=== PATIENT | female | born 1960 | race Caucasian/White ===

== ENCOUNTER 2017-05-25 23:29 | Inpatient (IN) | payer BC, MEDICAID ==
[~2017-05-25] VITALS: Ht 154.9 cm; Wt 78.0 kg
--- NOTE | 2017-05-25 23:39 | ERA ---
ER Documentation Chief Complaint Date/Time DATE: 05/25/17 TIME: 23:39 Chief Complaint palpitations HPI The patient is a 56-year-old female, presenting to the ER because of palpitation for the last 4 hours. She denies similar symptoms previously, chest pain, dyspnea. She denies fever, chills, syncope, near syncope, neck pain , abdominal pain, dyspnea, diarrhea. She does not smoke does not drink Past medical history: Hypertension Past surgical history: Mitral valve replacement ROS All systems reviewed and are negative except as per history of present illness. Medications Home Meds Reported Medications Potassium Citrate* (Potassium Citrate* ER) 10 Meq Tablet.sa, 10 MEQ PO BID, TAB.SA 05/26/17 Furosemide* (Furosemide*) 40 Mg Tablet, 40 MG PO DAILY, TAB 05/26/17 Aspirin* (Aspirin* EC) 81 Mg Tablet.dr, 81 MG PO DAILY, TAB 05/26/17 Hydrocodone/Acetaminophen ([place] 5-325 Tablet) 1 Each Tablet, 1 EACH PO PRN, TAB 05/26/17 Lisinopril* (Lisinopril*) 2.5 Mg Tablet, 2.5 MG PO DAILY, #30 TAB 05/26/17 Carvedilol* (Carvedilol*) 3.125 Mg Tablet, 3.125 MG PO BID, #60 TAB 05/26/17 Allergies Allergies: Coded Allergies: No Known Allergy (Unverified , 05/26/17) Physical Exam Vitals Vital Signs Date Time Temp Pulse Resp B/P Pulse Ox O2 Delivery O2 Flow Rate FiO2 05/26/17 01:30 98.2 70 19 121/76 100 Room Air 05/26/17 01:12 98.2 140 19 111/96 100 Room Air 05/25/17 23:44 98.2 163 19 130/111 100 Room Air 05/25/17 23:33 161 19 126/110 100 Physical Exam Const: No acute distress. Head: Atraumatic. Eyes: Normal Conjunctiva. ENT: Normal External Ears, Nose and Mouth. Neck: Full range of motion. No meningismus. Resp: Clear to auscultation bilaterally. Cardio: Irregularly irregular tachycardic Abd: Soft, non distended, normal bowel sounds, non tender. Skin: No petechiae or rashes. Back: No midline or flank tenderness. Ext: No cyanosis, or edema. Neur: Awake and alert. No focal deficit Psych: Normal Mood and Affect. Result Diagram: 05/25/17 2340 05/25/17 2340 Results 24 hrs Laboratory Tests Test 05/25/17 23:40 White Blood Count 9.610^3/ul Red Blood Count 4.7410^6/ul Hemoglobin 14.3g/dl Hematocrit 43.5% Mean Corpuscular Volume 91.8fl Mean Corpuscular Hemoglobin 30.2pg Mean Corpuscular Hemoglobin Concent 32.9g/dl Red Cell Distribution Width 12.0% Platelet Count 96489^3/UL Mean Platelet Volume 10.6fl Neutrophils % 60.4% Lymphocytes % 29.8% Monocytes % 7.2% Eosinophils % 1.9% Basophils % 0.4% Nucleated Red Blood Cells % 0.0/100WBC Neutrophils # 5.810^3/ul Lymphocytes # 2.910^3/ul Monocytes # 0.710^3/ul Eosinophils # 0.210^3/ul Basophils # 0.010^3/ul Nucleated Red Blood Cells # 0.010^3/ul Prothrombin Time 11.3Sec Prothrombin Time Ratio 0.9 INR International Normalized Ratio 0.82 Activated Partial Thromboplast Time 27.5Sec Sodium Level 147mmol/L Potassium Level 3.3mmol/L Chloride Level 101mmol/L Carbon Dioxide Level 28mmol/L Anion Gap 21 Blood Urea Nitrogen 17mg/dl Creatinine 0.86mg/dl Glucose Level 128mg/dl Calcium Level 9.5mg/dl Magnesium Level 2.1mg/dl Troponin I 0.016ng/ml Thyroid Stimulating Hormone (TSH) 0.650MIU/L Current Medications Medications (Trade) Dose Ordered Sig/Claudio Route PRN Reason Start Time Stop Time Status Last Admin Dose Admin Diltiazem HCl (Cardizem Iv) 20 mg ONCE ONCE IV 05/26/17 00:00 05/26/17 00:15 DC 05/26/17 00:27 Diltiazem HCl 25 mg 25 mg STK-MED ONCE .ROUTE 05/25/17 23:47 05/25/17 23:48 DC Sodium Chloride (NS) 1,000 ml @ 1,000 mls/hr Q1H ONCE IV 05/26/17 00:00 05/26/17 00:59 DC 05/26/17 00:02 Enoxaparin Sodium (Lovenox) 80 mg ONCE SC 05/26/17 00:30 05/26/17 01:00 DC 05/26/17 00:27 Diltiazem HCl 10 mg 10 mg ONCE ONCE IV 05/26/17 01:30 05/26/17 01:31 Cancel Potassium Chloride (KCl 40 MEQ/250 ML NS) 250 ml @ 62.5 mls/hr ONCE ONCE IVPB 05/26/17 02:00 05/26/17 05:59 05/26/17 02:18 Procedures/MDM EK:43 pm Read by emergency physician Rate/Rhythm: Atrial fibrillation with rapid ventricular response at 150 beats/min QRS, ST, T-waves: No ST elevation, no T inversion, PVC, inferior lateral ST and T abnormality Impression: Abnormal EKG EK:06 am Read by emergency physician Rate/Rhythm: Atrial fibrillation at 76 beats/min QRS, ST, T-waves: No ST elevation, no T inversion, nonspecific ST and T abnormality, prolonged QT Impression: Abnormal EKG [place] [id number] Radiology Main Line: [phone] DIAGNOSTIC IMAGING REPORT Patient: LI ELIZALDE : 1960 Age: 56 Sex: F MR #: [id number] DOS: 05/25/17 2339 Ordering MD: MANASA CALDERON MD Location: E/R Room/Bed: PROCEDURE: CHEST - 1 VIEW CLINICAL INDICATION: 56-year-old female with chest pain. TECHNIQUE: A single frontal AP upright portable view of the chest was performed. The images were reviewed on a PACS workstation. COMPARISON: None. FINDINGS: The patient has had a prior median sternotomy. The cardiomediastinal silhouette is enlarged. There is a valvular prosthesis. There is a left atrial appendage closure device. There is mild pulmonary vascular congestion. There is a shallow inspiration. There is mild bibasilar subsegmental atelectasis. There is no evidence for focal consolidation. There is no evidence for pneumothorax. IMPRESSION: 1. Status post median sternotomy. 2. Cardiomegaly with valvular prosthesis and left atrial appendage closure device. 3. Pulmonary vascular congestion. 4. Shallow inspiration with mild bibasilar subsegmental atelectasis. .Jesus Tapia MD, Date Time Electronically viewed and signed by .Jesus Tapia MD, on 05/26/2017 01:38 .M/ CC: MANASA CALDERON MD MEDICAL MAKING DECISION: The patient is a 56-year-old female, presenting with acute new onset atrial fibrillation, acute hypokalemia. He was treated with 1 L normal saline, Cardizem 10 mg IV and Lovenox 1 mg/kg subcutaneously for acute new onset atrial fibrillation and potassium chloride 40 mEq IV for acute hypokalemia with good response. Her heart rate has been under control well with the aforementioned treatment The differential diagnoses considered include but are not limited to acute coronary syndrome, acute myocardial infarction, pericarditis, pulmonary embolism , aortic dissection, pneumonia, pleural effusion, pneumothorax, GERD, chest wall pain, thyroid disease Critical Care: Time: 35 minutes excluding all billable procedures. Treatments/Evaluations: Close monitoring and treatment of unstable vital signs, cardiorespiratory, and neurologic status, while maintaining tight balance of fluid, respiratory, and cardiac interventions. Departure Diagnosis: Primary Impression: New onset atrial fibrillation Additional Impression: Hypokalemia Condition: Good Comments I discussed the findings with the patient. I discussed the patient with her physician Dr. Patrick Mckeon who was made aware of the lab, the treatment, the patient condition. The patient is admitted to [facility] at 1:55 am MANASA CALDERON MD May 25, 2017 23:39
[2017-05-25] MEDS ORDERED: DILTIAZEM 25 MG INJ ONE (23:47)
[2017-05-26] MEDS ORDERED: SOD CHLORIDE 0.9% 1,000 ML IV ONE
[2017-05-26] MEDS ORDERED: FURO40TA4 PO (00:10)
[2017-05-26] MEDS ORDERED: CARV3.1260 PO (00:10)
[2017-05-26] MEDS ORDERED: HYDR-906 PO (00:10)
[2017-05-26] MEDS ORDERED: ASPI-664 PO (00:10)
[2017-05-26] MEDS ORDERED: LISI2.5T59 PO (00:10)
[2017-05-26] MEDS ORDERED: POTA10TA18 PO (00:10)
[2017-05-26] MEDS ORDERED: ENOXAPARIN 80 MG/0.8 ML SYG SC SCH (00:30)
[2017-05-26 01:09] LABS: BASOPHILS % 0.4 % (0.0-2.0); EOSINOPHILS # 0.2 10^3/ul (0.0-0.5); EOSINOPHILS % 1.9 % (0.0-7.0); HEMATOCRIT 43.5 % (37.0-47.0); HEMOGLOBIN 14.3 g/dl (12.0-16.0); LYMPHOCYTES # 2.9 10^3/ul (0.8-2.9); LYMPHOCYTES % 29.8 % (15.0-51.0); MEAN CORPUSCULAR HEMOGLOBIN 30.2 pg (29.0-33.0); MEAN CORPUSCULAR HGB CONC 32.9 g/dl (32.0-37.0); MEAN CORPUSCULAR VOLUME 91.8 fl (82.0-101.0); MEAN PLATELET VOLUME 10.6 fl (7.4-10.4); MONOCYTE # 0.7 10^3/ul (0.3-0.9); MONOCYTES % 7.2 % (0.0-11.0); NEUTROPHIL # 5.8 10^3/ul (1.6-7.5); NEUTROPHILS % 60.4 % (39.0-77.0); PLATELET COUNT 252 10^3/UL (140-415); RED BLOOD COUNT 4.74 10^6/ul (4.20-5.40); WHITE BLOOD COUNT 9.6 10^3/ul (4.8-10.8)
[2017-05-26 01:26] LABS: INR 0.82; PARTIAL THROMBOPLASTIN TIME 27.5 Sec (25.0-35.0); PROTIME 11.3 Sec (12.2-14.2); PT RATIO 0.9
[2017-05-26 01:30] LABS: CALCIUM 9.5 mg/dl (8.4-10.2); CREATININE 0.86 mg/dl (0.44-1.00); MAGNESIUM 2.1 mg/dl (1.7-2.5); POTASSIUM 3.3 mmol/L (3.5-5.1)
[2017-05-26] MEDS ORDERED: DILTIAZEM 25 MG INJ IV ONE ×2 (01:30)
--- NOTE | 2017-05-26 01:39 | RADRPT ---
PROCEDURE: CHEST - 1 VIEW CLINICAL INDICATION: 56-year-old female with chest pain. TECHNIQUE: A single frontal AP upright portable view of the chest was performed. The images were reviewed on a PACS workstation. COMPARISON: None. FINDINGS: The patient has had a prior median sternotomy. The cardiomediastinal silhouette is enlarged. There is a valvular prosthesis. There is a left atrial appendage closure device. There is mild pulmonary vascular congestion. There is a shallow inspiration. There is mild bibasilar subsegmental atelect asis. There is no evidence for focal consolidation. There is no evidence for pneumothorax. IMPRESSION: 1. Status post median sternotomy. 2. Cardiomegaly with valvular prosthesis and left atrial appendage closure device. 3. Pulmonary vascular congestion. 4. Shallow inspiration with mild bibasilar subsegmental atelectasis. .Jesus Tapia MD, Date Time Electronically viewed and signed by .Jesus Tapia MD, on 05/26/2017 01:38 .M/
[2017-05-26 01:40] LABS: TROPONIN-I 0.016 ng/ml (0.00-0.12)
[2017-05-26 01:58] LABS: THYROID STIMULATING HORMONE 0.65 MIU/L (0.465-4.680)
[2017-05-26] MEDS ORDERED: POTASSIUM CHLORIDE 250 ML IVPB ONE (02:00)
[2017-05-26] MEDS ORDERED: SOD CHLORIDE 0.9% 500 ML IV ONE (03:30)
[2017-05-26] MEDS ORDERED: POTASSIUM CHLORIDE (SR) 10 MEQ TAB PO ONE (06:00)
[2017-05-26 06:59] VITALS: TEMP 98
[2017-05-26 07:52] VITALS: BP 136/72; PULSE 68; RESP 20; Ht 154.9 cm; Wt 78.0 kg
[2017-05-26] MEDS ORDERED: HYDROCODONE/APAP (5/325) TAB PO PRN ×2 (08:00→09:00)
[2017-05-26] MEDS ORDERED: ASPIRIN (EC) 81 MG TAB PO SCH (09:00)
[2017-05-26] MEDS ORDERED: LISINOPRIL 5 MG TAB PO SCH (09:00)
[2017-05-26] MEDS ORDERED: POTASSIUM CITRATE (SR) 5 MEQ TAB PO SCH (09:00)
[2017-05-26] MEDS ORDERED: FUROSEMIDE 40 MG TAB PO SCH (09:00)
--- NOTE | 2017-05-26 14:48 | DS ---
Date/Time of Note Date/Time of Note DATE: 05/26/17 TIME: 14:48 Discharge Summary Admission/Discharge Info Admit Date/Time May 26, 2017 at 01:54 Discharge Date/Time 05/26/17 Hx of Present Illness Patient comes in with atrial fibrillation. Patient was treated in the ER but admitted for further evaluation. She decided to leave AMA before I was able to see the patient. Hospital Course Patient comes in with atrial fibrillation. Patient was treated in the ER but admitted for further evaluation. She decided to leave AMA before I was able to see the patient. 1) atrial fibrillation - patient left AMA prior to further evaluation Home Meds Reported Medications Potassium Citrate* (Potassium Citrate* ER) 10 Meq Tablet.sa, 10 MEQ PO BID, TAB.SA 05/26/17 Furosemide* (Furosemide*) 40 Mg Tablet, 40 MG PO DAILY, TAB 05/26/17 Aspirin* (Aspirin* EC) 81 Mg Tablet.dr, 81 MG PO DAILY, TAB 05/26/17 Hydrocodone/Acetaminophen ([place] 5-325 Tablet) 1 Each Tablet, 1 EACH PO PRN, TAB 05/26/17 Lisinopril* (Lisinopril*) 2.5 Mg Tablet, 2.5 MG PO DAILY, #30 TAB 05/26/17 Carvedilol* (Carvedilol*) 3.125 Mg Tablet, 3.125 MG PO BID, #60 TAB 05/26/17 Primary Care Provider Not On Staff Doctor Pending Labs Laboratory Tests Test 05/25/17 23:40 White Blood Count 9.610^3/ul (4.8-10.8) Red Blood Count 4.7410^6/ul (4.20-5.40) Hemoglobin 14.3g/dl (12.0-16.0) Hematocrit 43.5% (37.0-47.0) Mean Corpuscular Volume 91.8fl (82.0-101.0) Mean Corpuscular Hemoglobin 30.2pg (29.0-33.0) Mean Corpuscular Hemoglobin Concent 32.9g/dl (32.0-37.0) Red Cell Distribution Width 12.0% (11.5-14.5) Platelet Count 87787^3/UL (140-415) Mean Platelet Volume 10.6fl (7.4-10.4) Neutrophils % 60.4% (39.0-77.0) Lymphocytes % 29.8% (15.0-51.0) Monocytes % 7.2% (0.0-11.0) Eosinophils % 1.9% (0.0-7.0) Basophils % 0.4% (0.0-2.0) Nucleated Red Blood Cells % 0.0/100WBC (0.0-0.0) Neutrophils # 5.810^3/ul (1.6-7.5) Lymphocytes # 2.910^3/ul (0.8-2.9) Monocytes # 0.710^3/ul (0.3-0.9) Eosinophils # 0.210^3/ul (0.0-0.5) Basophils # 0.010^3/ul (0.0-0.1) Nucleated Red Blood Cells # 0.010^3/ul (0.0-0.0) Prothrombin Time 11.3Sec (12.2-14.2) Prothrombin Time Ratio 0.9 INR International Normalized Ratio 0.82 Activated Partial Thromboplast Time 27.5Sec (25.0-35.0) Sodium Level 147mmol/L (135-144) Potassium Level 3.3mmol/L (3.5-5.1) Chloride Level 101mmol/L (97-110) Carbon Dioxide Level 28mmol/L (21-31) Anion Gap 21 (8-16) Blood Urea Nitrogen 17mg/dl (7-20) Creatinine 0.86mg/dl (0.44-1.00) Glucose Level 128mg/dl (70-220) Calcium Level 9.5mg/dl (8.4-10.2) Magnesium Level 2.1mg/dl (1.7-2.5) Troponin I 0.016ng/ml (0.00-0.12) Thyroid Stimulating Hormone (TSH) 0.650MIU/L (0.465-4.680) YUDITH BENITEZ May 26, 2017 14:48
--- NOTE | 2017-05-26 14:48 | HP ---
Date/Time of Note Date/Time of Note DATE: 05/26/17 TIME: 14:46 Assessment/Plan VTE Prophylaxis VTE Prophylaxis Intervention: other Lines/Catheters IV Catheter Type (from Nrs): Saline Lock Assessment/Plan Chief Complaint/Hosp Course 1) atrial fibrillation - patient left AMA prior to further evaluation Problems: HPI/ROS Admit Date/Time Admit Date/Time May 26, 2017 at 01:54 Hx of Present Illness Patient comes in with atrial fibrillation. Patient was treated in the ER but admitted for further evaluation. She decided to leave AMA before I was able to see the patient. PMH/Family/Social Social History Smoking Status: Never smoker Exam/Review of Systems Vital Signs Vitals Vital Signs Date Time Temp Pulse Resp B/P Pulse Ox O2 Delivery O2 Flow Rate FiO2 05/26/17 07:52 98.3 68 20 136/72 99 Room Air Exam Exam Unable to examine patient Labs Result Diagram: 05/25/17 2340 05/25/17 2340 Medications Medications Current Medications Aspirin (Halfprin) 81 mg DAILY PO Last administered on 05/26/17 08:19; Admin Dose 81 MG; Start 05/26/17 at 09:00 Carvedilol (Coreg) 3.125 mg BID PO Last administered on 05/26/17 08:20; Admin Dose 3.125 MG; Start 05/26/17 at 09:00 Furosemide (Lasix) 40 mg DAILY@06 PO Last administered on 05/26/17 10:52; Admin Dose 40 MG; Start 05/26/17 at 09:00 Lisinopril (Zestril) 2.5 mg DAILY PO Last administered on 05/26/17 08:18; Admin Dose 2.5 MG; Start 05/26/17 at 09:00 Potassium Citrate (Urocit-K) 10 meq BID PO Last administered on 05/26/17 10:52 ; Admin Dose 10 MEQ; Start 05/26/17 at 09:00 Acetaminophen/ Hydrocodone Bitart ([place] (5/325)) 1 tab Q4H PRN PO PAIN LEVEL 6 -10; Start 05/26/17 at 09:00 YUDITH BENITEZ May 26, 2017 14:48
== END 2017-05-26 12:03 | disposition left against medical advice (07) | DRG 310 ==
LOC: E/R 23:29 → MS3 05-26 01:54
PROVIDERS: ADMIT Internal Medicine; ATTEND Internal Medicine
DX: I48.91 Unspecified atrial fibrillation (principal); Z95.2 Presence of prosthetic heart valve; I10 Essential (primary) hypertension; Z79.82 Long term (current) use of aspirin; E87.6 Hypokalemia
CPT/HCPCS: 36415; 71010; 80048; 83735; 84443; 84484; 85025; 85610; 85730; 93005; 96372; 96374; 96375; J3480; J7030; J7040